=== PATIENT | female | born 1980 | race Caucasian/White ===

== ENCOUNTER 2016-12-04 02:56 | Emergency (ER) | payer MEDICAID ==
[~2016-12-04] VITALS: Wt 68.0 kg
[~2016-12-04 02:56] MED LIST: ACET-2158 PO
[2016-12-04] MEDS ORDERED: PSEU120T11 PO (04:10)
[2016-12-04] MEDS ORDERED: BEN50 PO (04:10)
[2016-12-04] MEDS ORDERED: CETI10CA PO (04:12)
[2016-12-04] MEDS ORDERED: FLUT9.9S NASAL (04:12)
--- NOTE | 2016-12-04 04:15 | ERD ---
ER Documentation Chief Complaint Date/Time DATE: 12/04/16 TIME: 04:11 Chief Complaint sinus congestion for 1 month HPI 36-year-old female presents here in emergency department for complaints of runny nose nasal congestion, itching of the nose for 1 month now. Patient has history of allergies, is currently on Flonase, Zyrtec, helped it somewhat the symptoms with only moderate. Patient's continues to have nasal congestion, she couldn't sleep at night because of the congestion. Patient denies any fever or chills. Patient denies any cough. Patient's complaining of postnasal drip. Patient denies any other symptoms ROS All systems reviewed and are negative except as per history of present illness. Medications Home Meds Active Scripts Diphenhydramine Hcl* (Benadryl*) 50 Mg Cap, 50 MG PO Q6 Y for NASAL CONGESTION, #30 CAP Prov:MIKE TEJEDA THEORETICAL PHYSICIST 12/04/16 Pseudoephedrine Hcl (Sudafe 12-Hour) 120 Mg Tablet.er, 120 MG PO BID Y for CONGESTION, #14 TAB.SA Prov:MIKE TEJEDA THEORETICAL PHYSICIST 12/04/16 Reported Medications Cetirizine Hcl* (Zyrtec*) Unknown Strength Capsule, PO DAILY, #10 TAB.CHEW 12/04/16 Fluticasone Propionate (Flonase Allergy Relief) Unknown Strength [place].susp, NASAL DAILY, #1 BOTTLE TO EACH NOSTRIL 12/04/16 Acetaminophen (TYLENOL 325 MG TAB) 325 Mg Tab, 325 MG PO Y for PAIN, TAB 2 TAB 02/03/14 Allergies Allergies: Coded Allergies: No Known Allergies (Verified Allergy, 02/03/14) PMhx/Soc Medical and Surgical Hx: pt denies Medical Hx History of Surgery: Yes (tubal ligation) Anesthesia Reaction: No Hx Neurological Disorder: No Hx Respiratory Disorders: No Hx Cardiac Disorders: No Hx Psychiatric Problems: No Hx Miscellaneous Medical Probl: No Hx Alcohol Use: No Hx Substance Use: No Hx Tobacco Use: No FmHx Family History: No coronary disease, No diabetes, No other Physical Exam Vitals Vital Signs Date Time Temp Pulse Resp B/P Pulse Ox O2 Delivery O2 Flow Rate FiO2 12/04/16 03:11 98.0 61 18 143/79 100 Physical Exam GENERAL: The patient is well developed and appropriate for usual state of health, in no apparent distress. HEENT: Atraumatic. Ears: Normal tympanic membrane, no erythema or bulging. No ear canal swelling. No ear discharge. Nose:. Pale boggy nasal turbinates with clear nasal discharge. Throat: oropharynx erythematous with postnasal drip. No tonsillar swelling or tonsillar exudates. No lymphadenopathy. No sinus tenderness noted. CHEST: Clear to auscultation bilaterally. There are no rales, wheezes or rhonchi. HEART: Regular rate and rhythm. No murmurs, clicks, rubs or gallops. No S3 or S4. ABDOMEN: Soft, nontender and nondistended. Good bowel sounds. No rebound or guarding. No gross peritonitis. No gross organomegaly or masses. No Hodge sign or McBurney point tenderness. BACK: No midline or flank tenderness. EXTREMITIES: Equal pulses bilaterally. There is no peripheral clubbing, cyanosis or edema. No focal swelling or erythema. Full range of motion. Grossly neurovascularly intact. NEURO: Alert and oriented. Cranial nerves 2-12 intact. Motor strength in all 4 extremities with 5/5 strength. Sensation grossly intact. Normal speech and gait. SKIN: There is no apparent rash or petechia. The skin is warm and dry. HEMATOLOGIC AND LYMPHATIC: There is no evidence of excessive bruising or lymphedema. No gross cervical, axillary, or inguinal lymphadenopathy. Procedures/MDM Medical decision making: Patient's symptoms most active consistent with allergic rhinitis. It is a chronic problem that she has. At this time, the patient is currently on Flonase and Zyrtec, I added on Sudafed and Benadryl to take at nighttime to help with her congestion and insomnia from nasal congestion. Patient is advised to see an emergency detail driver specialist. No symptoms of acute bacterial rhinosinusitis at this time. Patient does not have any fever. No purulent discharge from the nose. Patient does not have any symptoms of sepsis at this time. Patient was advised to follow with primary doctor in 1-2 days, possibly see an emergency detail driver specialist per patient was advised to return to emergency department for any worsening symptoms. Departure Diagnosis: Primary Impression: Allergic rhinitis Allergic rhinitis seasonality: unspecified seasonality Allergic rhinitis trigger: unspecified Qualified Code: J30.9 - Allergic rhinitis, unspecified allergic rhinitis trigger, unspecified rhinitis seasonality Condition: Stable Patient Instructions: Allergic Rhinitis MIKE TEJEDA NP Dec 04, 2016 04:14
== END 2016-12-04 04:50 | disposition home or self-care (01) ==
LOC: FTE 02:56
DX: J30.9 Allergic rhinitis, unspecified (principal)
CPT/HCPCS: 99283

== ENCOUNTER 2018-04-17 02:30 | Emergency (ER) | END 2018-04-17 06:32 | disposition home or self-care (01) ==

== ENCOUNTER 2018-12-01 15:24 | Emergency (ER) | payer MEDICAID ==
[~2018-12-01] VITALS: Wt 72.0 kg
[~2018-12-01 15:24] MED LIST changes: -ACET-2158 PO; +IBUP-1542 PO; +OMEP40CA6 PO; +TYL500 PO; +ZOF8 PO
[2018-12-01] MEDS ORDERED: SOD CHLORIDE 0.9% 500 ML IV STA (16:04)
[2018-12-01] MEDS: ONDANSETRON 4 MG INJ IV STA ×2 (16:50→16:54)
[2018-12-01] MEDS: morphine 4 MG/ML VIAL IV STA ×2 (16:50→16:54)
--- NOTE | 2018-12-01 16:50 | ERD ---
ER Documentation Chief Complaint Chief Complaint SYNCOPAL EPISODE, HAD NOMI 3 DAYS AGO HPI This is a 37-year-old female with a past medical history of GERD, previous tubal ligation, nephrolithiasis, cholelithiasis and biliary colic status post cholecystectomy 3 days ago who is presenting after a syncopal episode today. The patient reports cramping aching general abdominal pain, moderate in nature, minimally improved on narcotic medication with associated nausea and a few episodes of nonbilious nonbloody vomiting. The patient reports that she has not had a bowel movement since her surgery. She feels very constipated. The patient reports that the pain became unbearable this afternoon. She started to feel very lightheaded and dizzy and did pass out. She had a ground-level fall, and reportedly hit her head. She woke up almost immediately. She is not on any blood thinners. The patient has had no focal deficits. The patient has had no weakness or numbness or tingling to the face or extremities. She was ambulatory to the room without issue. She denies any diarrhea. She has not had any black or bloody or tarry stools. The patient has not had any issues with urination. She denies any dysuria or hematuria or urgency or frequency. Her symptoms have been ongoing since her surgery. The patient has been taking hydrocodone for pain, Zofran for nausea and a stool softener without relief of her symptoms at home. The patient denies feeling sick recently. The patient denies fever or chills. The patient has had no headache or vision changes. The patient does not endorse neck or back pain. The patient denies lightheadedness or dizziness. The patient has had no chest pain or trouble breathing. ROS All systems reviewed and are negative except as per history of present illness. Medications Home Meds Active Scripts Polyethylene Glycol* (Miralax*) 17 Gm Powd.pack, 17 GM PO DAILY, #7 Prov:MIGUEL CAMARGO MD 12/01/18 Ondansetron Hcl* (Zofran*) 8 Mg Tab, 8 MG PO Q6H PRN for NAUSEA AND OR VOMITING, #20 TAB Prov:MIGUEL CAMARGO MD 04/17/18 Reported Medications Docusate Sodium* (Stool Softener*) 100 Mg Capsule, 100 MG PO BID, CAP 12/01/18 Hydrocodone/Acetaminophen ([place] 5-325 Tablet) 1 Each Tablet, 1 EACH PO Q4H, TAB 12/01/18 Discontinued Reported Medications Acetaminophen* (Tylenol*) 500 Mg Tab, 500 MG PO Q4H PRN for MILD PAIN LEVEL 1-3, TAB 04/17/18 Omeprazole* (Omeprazole*) 40 Mg Capsule.dr, 40 MG PO DAILY, #30 CAP 04/17/18 Discontinued Scripts Ibuprofen* (Motrin*) 600 Mg Tab, 600 MG PO Q6H PRN for PAIN, #30 TAB Prov:MIGUEL CAMARGO MD 04/17/18 Allergies Allergies: Coded Allergies: No Known Allergies (Verified Allergy, Unknown, 12/01/18) PMhx/Soc History of Surgery: Yes (Bilateral tubal ligation, cholecystectomy) Anesthesia Reaction: No Hx Neurological Disorder: No Hx Respiratory Disorders: No Hx Cardiac Disorders: No Hx Psychiatric Problems: No Hx Miscellaneous Medical Probl: Yes (Gallstones,Nephrolithiasis) Hx Alcohol Use: No Hx Substance Use: No Hx Tobacco Use: No FmHx Family History: No diabetes Physical Exam Vitals Vital Signs Date Temp Pulse Resp B/P (MAP) Pulse Ox O2 O2 Flow FiO2 Time Delivery Rate 12/01/18 97.0 70 18 168/78 100 15:26 (108) Physical Exam Const: No apparent distress, well-developed, well-nourished Head: Normocephalic, Atraumatic Eyes: Normal Conjunctiva. Extraocular movements intact. Pupils equal, round and reactive to light ENT: Normal External Ears, Nose and Mouth. Neck: Full range of motion. No meningismus. Resp: Clear to auscultation bilaterally, No wheezes, rales or rhonchi Cardio: Regular rate and rhythm. No murmurs, rubs or gallops Abd: Soft, non distended. General abdominal discomfort with occasional voluntary guarding. No rebound. No involuntary guarding. Healing surgical sca rs with no erythema or induration or purulence or fluctuance around each site. Normal bowel sounds Skin: No petechiae or rashes Back: No midline tenderness. No CVA tenderness Ext: No cyanosis, or edema Neur: Awake and alert, oriented 4. Cranial nerves intact. No facial droop. Normal strength, sensation and coordination. Psych: Normal Mood and Affect Result Diagram: 12/01/18 1650 12/01/18 1650 Results 24 hrs Laboratory Tests Test 12/01/18 16:50 White Blood Count 10.3 10^3/ul Red Blood Count 4.05 10^6/ul Hemoglobin 10.6 g/dl Hematocrit 34.4 % Mean Corpuscular Volume 84.9 fl Mean Corpuscular Hemoglobin 26.2 pg Mean Corpuscular Hemoglobin Concent 30.8 g/dl Red Cell Distribution Width 15.3 % Platelet Count 286 10^3/UL Mean Platelet Volume 10.7 fl Immature Granulocytes % 0.400 % Neutrophils % 59.8 % Lymphocytes % 29.1 % Monocytes % 7.8 % Eosinophils % 2.1 % Basophils % 0.8 % Nucleated Red Blood Cells % 0.0 /100WBC Immature Granulocytes # 0.040 10^3/ul Neutrophils # 6.2 10^3/ul Lymphocytes # 3.0 10^3/ul Monocytes # 0.8 10^3/ul Eosinophils # 0.2 10^3/ul Basophils # 0.1 10^3/ul Nucleated Red Blood Cells # 0.0 10^3/ul Sodium Level 140 mmol/L Potassium Level 4.4 mmol/L Chloride Level 105 mmol/L Carbon Dioxide Level 25 mmol/L Anion Gap 10 Blood Urea Nitrogen 14 mg/dl Creatinine 0.67 mg/dl Est Glomerular Filtrat Rate mL/min > 60 mL/min Glucose Level 89 mg/dl Calcium Level 9.3 mg/dl Total Bilirubin 0.1 mg/dl Direct Bilirubin 0.00 mg/dl Indirect Bilirubin 0.1 mg/dl Aspartate Amino Transf (AST/SGOT) 45 IU/L Alanine Aminotransferase (ALT/SGPT) 53 IU/L Alkaline Phosphatase 101 IU/L Troponin I < 0.012 ng/ml Total Protein 6.9 g/dl Albumin 3.9 g/dl Lipase 73 U/L Current Medications Medications Dose Sig/Dashawn Start Time Status Last (Trade) Ordered Route PRN Stop Time Admin Dose Reason Admin Sodium 500 ml @ Q1H STAT 12/01/18 DC 12/01/18 Chloride 500 mls/hr IV 16:04 16:50 12/01/18 17:03 Morphine 4 mg ONCE STAT 12/01/18 DC Sulfate IV 16:19 (morphine) 12/01/18 17:18 Ondansetron 4 mg ONCE STAT 12/01/18 DC HCl (Zofran IV 16:19 Inj) 12/01/18 16:21 Fentanyl 50 mcg ONCE ONCE 12/01/18 DC 12/01/18 (Sublimaze) IV 17:30 17:23 12/01/18 17:31 Procedures/MDM MDM The patient's presentation warrants further investigation. Previous medical records, if available, were reviewed. LABS The patient's laboratory testing was obtained and reviewed. No emergent treatment was required unless described below. CBC: No E/o of systemic infection or severe anemia or thrombocytopenia. Mild normocytic anemia, nonemergent. CMP: No E/o severe acidosis or alkalosis or renal failure or liver disease or diabetic ketoacidosis Lipase: No E/o pancreatitis Troponin: No E/o acute ischemia EKG EKG read by me: Rate/Rhythm: Regular rate and rhythm at a rate of 63 bpm Intervals: Normal Marshall: Normal Impression: No evidence of acute ischemia or arrhythmia IMAGING Imaging and Radiology interpretation reviewed. CXR 1V Interpreted by me Soft Tissue: No acute abnormalities Bones: No acute abnormalities Mediastinum/Cardiac Silhouette: Unremarkable. No widened mediastinum. Lungs: No acute abnormalities. Normal pulmonary vasculature. No pneumothorax. No pulmonary edema. Clear costal diaphragmatic angles. No pleural effusions. No opacity or consolidations concerning for pneumonia. TREATMENT/DISPOSITION The patient reports postoperative pain. The patient's abdominal exam is reassuring. She does have some mild voluntary guarding and tenderness at her surgical scar sites, but I am ultimately able to press without any obvious deeper tenderness. The patient's blood work is unremarkable. I have low s uspicion for a postoperative complication. The patient does endorse constipation. In addition to her stool softener, the patient will be provided a prescription for MiraLAX. The patient already has a prescription for narcotic medication for pain and Zofran for nausea. The patient should follow-up with her surgeon for refill of the narcotic medication as needed. The patient is afebrile with no leukocytosis The patient is afebrile with unremarkable vital signs and no leukocytosis. I have low suspicion for a systemic infection. I do not feel the patient requires a septic workup. The patient does not have any evidence of peritonitis. The patient does not have clinical symptoms concerning for mesenteric ischemia or ischemic colitis. I have low suspicion for viscus perforation. The patient does not have right upper quadrant tenderness, and I have low suspicion for gallstones, cholecystitis or biliary colic. The patient does not have any epigastric pain. I have low suspicion for gastritis, PUD or GERD. The patient does not have left upper quadrant tenderness. I have low suspicion for pancreatitis. I have low suspicion for appendicitis. The patient does not have suprapubic tenderness. The patient does not endorse any dysuria or urgency or frequency or hematuria. I have decreased suspicion for cystitis. The patient does not have any left lower quadrant tenderness, and I have low suspicion for diverticulosis or diverticulitis. The patient does not have any flank tenderness. The patient does not have gross hematuria. I have decreased suspicion for nephrolithiasis or renal colic. The patient does not have any palpable pulsatile mass or severe abdominal pain radiating to the back. I have low suspicion for aortic aneurysm, dissection or rupture. The patient also reports a syncopal event. I do have increased suspicion for a vasovagal event associated with her postoperative pain. While she did hit her head, it was a ground-level fall and she is not on any blood thinners. She woke up immediately and has had no residual effects. The patient has no focal defic its. The neurologic exam is reassuring. I have decreased suspicion for cerebral ischemia. There was no trauma or injury. There is no personal or family history of cerebral aneurysm. I have decreased suspicion for SAH or other ICH. I have low suspicion for temporal arteritis, cavernous venous thrombosis, subdural hematoma, epidural hematoma, meningitis.I do not feel the patient requires CT imaging. The patient has a reassuring physical exam. The patient is not clinically orthostatic. The patient is not dizzy. I have decreased suspicion for vertigo. The patient has no signs of emergent or symptomatic anemia. The patient does not have any emergent electrolyte or metabolic emergencies. I have decrease suspicion for a thyroid disorder. The patient is not toxic appearing. I have decreased suspicion for an infectious etiology of symptoms. The patient's EKG and troponin are reassuring. I have low suspicion for acute coronary syndrome. I do not see evidence of any emergent cardiac arrhythmia, which includes but is not limited to heart block, Brugada syndrome or WPW. The patient has no heart murmurs or rales. There is no evidence of cardiomegaly on exam or chest xray. I have low suspicion for hypertrophic cardiomyopathy. I do not see evidence of CHF. The patient does not endorse any chest or pleuritic pain. The history is negative for bleeding or clotting disorders. The patient has not been involved in any recent prolonged trips or surgeries or hospitalizations. The patient has no calf tenderness or swelling. I have decreased suspicion for PE as the etiology of symptoms. The [place] Syncope Rule was applied and the patient was found to be low risk for a serious outcome. Upon reevaluation of the patient, symptoms have improved. No emergent diagnoses were identified. At this time, I feel that the patient stable for discharge. The patient was instructed to follow-up with a primary care physician in 1-3 days. The patient will be given strict precautions with which to return to the emergency department. Prescriptions: MiraLAX The patient's blood pressure was elevated at greater than 120/80 while in the emergency department. The patient was otherwise stable with no evidence of hypertensive urgency or emergency. The patient does not require admission for blood pressure control. I have discussed with the patient the risks of hypertension. I have instructed the patient to return to the ER for any new or worsening symptoms including chest pain, shortness of breath, headache, blurred vision, confusion, nausea, vomiting or LOC. I have advised the patient to follow up with the primary care physician for outpatient monitoring and treatment for hypertension in 1-3 days. Disclaimer: Inadvertent spelling and grammatical errors are likely due to EHR/dictation software use and do not reflect on the overall quality of patient care. Note that the electronic time recorded on this note does not necessarily reflect the actual time of the patient encounter. Departure Diagnosis: Primary Impression: Syncope Syncope type: unspecified Qualified Codes: R55 - Syncope and collapse Additional Impressions: Postoperative abdominal pain Constipation Constipation type: unspecified constipation type Qualified Codes: K59.00 - Constipation, unspecified Normocytic anemia Condition: Stable Patient Instructions: Abdominal Pain, Cholecystectomy, Constipation (Adult), Syncope, Unk Cause Additional Instructions: Thank you for for coming to [facility] for your care today. Please ask your nurse or provider if you have questions about your care today and do not leave until all your questions have been answered. Please use any medications given as directed and follow-up with your doctor (or the doctor you were referred to) in the next 1-3 days. If you do not have a primary care doctor you may follow up at the [facility] (listed below). You may also use motrin and tylenol as needed for fever and/or pain unless instructed otherwise by your provider or nurse. Indications for more urgent follow-up have been discussed, but you may return to the Emergency Department at ANY time for any worrisome or worsening symptoms. If you have abdominal pain, please know that no test or exam you received is perfect and you should follow up within 8 hours for continued pain. If you had any imaging studies today, such as an X-Ray or CT Scan, these studies will be reviewed later by a radiologist. You will be called if there are important findings that were not identified today, so make sure the contact information you provided at registration is correct. If you received any narcotic pain control medicine today, such as Vicodin, Morphine or Dilaudid, your coordination and judgment may be affected for a number of hours. Please do not drive or operate heavy machinery, and you may w ant someone to assist you at home. If you were given a prescription for narcotic medication, be aware that it is very addictive- use sparingly and only if necessary. PLEASE SEEK FURTHER EVALUATION AND MANAGEMENT AT YOUR DOCTORS OFFICE WITHIN THE NEXT 1-3 DAYS. IT IS YOUR RESPONSIBILITY TO MAKE AN APPOINTMENT FOR FOLOW-UP CARE. IF YOU HAVE A PRIMARY DOCTOR, PLEASE CALL THEIR OFFICE TO SCHEDULE AN APPOINTMENT FOR FOLLOW UP. IF YOU DO NOT HAVE A PRIMARY DOCTOR YOU CAN CALL OUR PHYSICIAN REFERRAL HOTLINE AT IF YOU CAN NOT AFFORD TO SEE A PHYSICIAN YOU CAN CHOSE FROM THE FOLLOWING FORMERLY [facility] CLINICS: [facility] [address] [facility] [address] [facility] [facility] [address] [facility] [facility] [address] [facility] [address] [facility]. [facility]. [address] MIGUEL PENA MD Dec 01, 2018 16:49
[2018-12-01] MEDS ORDERED: POLY17PO6 PO (16:51)
[2018-12-01] MEDS ORDERED: HYDR-4011 PO (16:53)
[2018-12-01] MEDS ORDERED: DOCU-230 PO (16:53)
[2018-12-01] MEDS ORDERED: FENTAnyl 50 MCG/ML VIAL IV ONE (17:30)
[2018-12-01 17:55] VITALS: RESP 20
[2018-12-01 18:02] VITALS: BP 123/78; PULSE 60
== END 2018-12-01 18:12 | disposition home or self-care (01) ==
LOC: E/R 15:24
DX: R55 Syncope and collapse (principal); K59.00 Constipation, unspecified; D64.9 Anemia, unspecified; G89.18 Other acute postprocedural pain
CPT/HCPCS: 36415; 71045; 80048; 80076; 83690; 84484; 85025; 96374; J2270; J2405; J3010; J7040; Z7502; 93005